=== PATIENT | female | born 1940 | race African-American/Black ===

== ENCOUNTER 2017-05-19 20:20 | Emergency (ER) | payer MEDICARE, OTHER ==
[~2017-05-19 20:20] MED LIST: *UNABLE1; ACCUNEB INH; ADVIL PM; ALBUTEROL5 INH; AMB5 PO; ASA5GR PO; ASAB PEG; ASAB PO; ASABAYER PO; AURALGAN OT; BENTYL20 PO; BIAXIN250 PEG; BISR PR; BIST PO; CALMOSEPTINE O2.5 OZ TOP; CALMOSEPTINE TOP; CELEXA20 PO; CELEXA40 MG PO; CHLORZOXAZON500 MG OR; CHLORZOXAZON500 MG PO; CIP5 PO; COL-RITE; CORDARONE PEG; CYMBALTA30 PO; DEPASPRINK PO; DIGITEK0.125 MG PEG; DIGITEK0.125 MG PO; DIL4TAB PO; DIOVAN40 MG PO; DORZOLAMIDE2 % OP; DORZOLAMIDE2 % OPH; DRAMAMINE25 MG PO; DSS PO; FLEX PO; FLEXERIL5 MG PO; FLONASE NAS; GANIDIN NR100 MG/5 M PEG; HYDROCODONE PO; ISOSORB DIN30 MG PO; ISTALOL0.5 % OP; KCL20UDL PEG; KCL20UDL PO; KLOR-CON M1010 MEQ PO; KLOR-CON M2020 MEQ PO; KLOR-CON20 MEQ PO; L20 PEG; L20 PO; LAN125 PEG; LOP25 PO; LOP50 PEG; LOP50 PO; LORT7 PO; LORTAB10 PO; LORTABLIQ PEG; LORTABLIQ PO; LUMIGAN OPH; MCZ125 PO; MCZ25 PO; MEG40 PO; METHOC750B PO; MIRALAXPKT PO; MOBIC15 MG PO; MOMUD PO; NEUR100 PO; NEUR300 PO; NEXIUM 40 MG PEG; NEXIUM40 MG PEG; NITROSTAT0.4 MG SL; NORCO PEG; NORCO PO; NORCO1 TA1 PO; NORCO1 TA2 PO; OS500+D PO; PARAFON FORT PO; PAX10 PO; PAX20 PO; PREDNISONE DOSEPACK; PRILO PEG; PRILO PO; PRILOSEC40 MG PO; PRIN5 PO; PROAIR HFA INH; PROVENTSOL INH; QUESTRAN4 GM PEG; REG5 PEG; REG5 PO; SEROQUEL25 PO; SEROQUEL50 MG PO; SUCR PO; T PEG; THERGRANM PEG; TICLID 250 MG250 MG PO; TOPXL25 PO; TRANSSCOP TOP; TRAZ50 PO; TRAZODONE150 MG PEG; V2 PO; VANC125UDL PO; VIT D PO; VITAMIN D1000 UNI1 PO; VITAMIN D400 UNI1 PO; VITC500 PEG; VITD PO; X25 PEG; X25 PO; X5 PO; XALAT OPH; ZANTAC150 MG PO; ZOCOR40 PO; ZOFRAN4 PO; [UNRECOGNIZED DRUG - OTHER] TOP; [UNRECOGNIZED DRUG - REMARK]
[2017-05-19 23:16] LABS: BASOPHILS 0.4 %; BASOPHILS ABSOLUTE 0.02 10/3/uL (0.0-0.16); EOSINOPHILS 12.4 %; EOSINOPHILS ABSOLUTE 0.58 10/3/uL (0.0-0.53); HEMATOCRIT 44.2 % (36.0-48.0); IMMATURE GRANULOCYTES 0.2 %; IMMATURE GRANULOCYTES ABSOLUTE 0.01 10/3/uL (0.0-0.11); LYMPHOCYTES 37.1 %; LYMPHOCYTES ABSOLUTE 1.74 10/3/uL (0.67-4.30); MANUAL DIFF NO %; MEAN CORPUS HGB CONC 31.7 g/dL (32.0-36.0); MEAN CORPUSCULAR VOLUME 97.8 fL (80-100); MONOCYTES 9.8 %; MONOCYTES ABSOLUTE 0.46 10/3/uL (0.21-1.20); NEUTROPHILS 40.1 %; NEUTROPHILS ABSOLUTE 1.88 10/3/uL (2.02-8.40); PLATELET COUNT 176 10/3/uL (150-400); RBC DISTRIBUTION WIDTH 13.5 % (12.0-16.0); RED CELL COUNT 4.52 10/6/uL (4.0-5.6); WHITE BLOOD CELLS 4.7 10/3/uL (4.5-10.5)
[2017-05-19 23:34] LABS: A/G RATIO 0.7 (0.7-1.9); ALBUMIN 3.4 G/DL (3.5-5.0); CALCIUM, SERUM 9.5 MG/DL (8.5-10.4); CHLORIDE, SERUM 103 MMOL/L (96-112); CO2 (CARBON DIOXIDE) 30 MMOL/L (24-34); CREATININE 0.88 MG/DL (0.55-1.02); GFR AFRICAN AMERICAN 74 ML/MIN (>=60); GFR NON AFRICAN AMERICAN 64 ML/MIN (>=60); GLOBULIN 5.2 G/DL (2.5-4.1); GLUCOSE, SERUM 69 MG/DL (60-99); LACTATE 1.2 MMOL/L (0.3-2.4); POTASSIUM, SERUM 4.8 MMOL/L (3.5-5.3); SGOT(AST) 21 U/L (5-40); SGPT(ALT) 24 U/L (5-65); SODIUM, SERUM 138 MMOL/L (135-148); TOTAL BILIRUBIN 0.4 MG/DL (0-1.2); TOTAL PROTEIN 8.6 G/DL (6.0-8.5)
[2017-05-19 23:39] LABS: ALKALINE PHOSPHATASE 89 U/L (45-117); BUN (BLOOD UREA NITROGEN) 23 MG/DL (6-23)
[2017-05-20 00:40] LABS: ASCORBIC ACID (UR NOT ORDER) 40 (NEG); BILIRUBIN, URINE NEGATIVE (NEG); ER URINALYSIS TAT 0 Hrs 00 Mins; KETONE, URINE NEGATIVE (NEG); LEUKOCYTE ESTERASE(NOT OR NEG (NEG); NITRITE (URINE) NEG (NEG); WBC (NOT ORDERED) (RFLEX) < 1 (0-5)
== END 2017-05-20 01:59 | disposition home or self-care (01) ==
LOC: ER 20:20
PROVIDERS: Emergency Medicine
DX: R10.30 Lower abdominal pain, unspecified (principal); Z87.01 Personal history of pneumonia (recurrent); I10 Essential (primary) hypertension; I48.0 Paroxysmal atrial fibrillation; I69.959 Hemiplegia and hemiparesis following unspecified cerebrovascular disease affecting unspecified side; I69.928 Other speech and language deficits following unspecified cerebrovascular disease; K21.9 Gastro-esophageal reflux disease without esophagitis; F41.9 Anxiety disorder, unspecified; F32.9 Major depressive disorder, single episode, unspecified; K58.9 Irritable bowel syndrome, unspecified; Z93.1 Gastrostomy status; Z88.2 Allergy status to sulfonamides; Z88.5 Allergy status to narcotic agent; Z88.1 Allergy status to other antibiotic agents; Z91.040 Latex allergy status; Z79.899 Other long term (current) drug therapy; Z88.8 Allergy status to other drugs, medicaments and biological substances
CPT/HCPCS: 71010; 74176; 80053; 81001; 83605; 85025; 87040; 93005; 99285